=== PATIENT | female | born 1960 | race Caucasian/White ===

== ENCOUNTER → 2017-05-20 | Outpatient (CLI) | payer MEDICARE, OTHER ==
[~2017-05-20] MED LIST: AMLODIPINE BESYL5 MG PO; CELEXA20 M1 PO; CHLORTHALIDONE25 MG PO; FENOFIBRATE145 M1 PO; HUMALOG KW100 UNIT/1 SUBQ; LEVEMIR FL100 UNIT/1 SUBQ; LISINOPRIL20 MG PO; TRADJENTA5 MG PO; VITAMIN D-32000 UNIT PO
--- NOTE | ~2017-05-20 | EKG ---
PATIENT: JESSICA WADE UNIT #: [id number] Ventricular Rate: 87 BPM Atrial Rate: 87 BPM P-R Interval: 172 ms QRS Duration: 80 ms Q-T Interval: 388 ms QTC Calculation(Bezet): 466 ms P [place]: 34 degrees Calculated R [place]: -2 degrees Calculated T [place]: 20 degrees Diagnosis Line: Normal sinus rhythm Diagnosis Line: Inferior infarct , age undetermined Diagnosis Line: Cannot rule out Anterior infarct , age Diagnosis Line: undetermined Diagnosis Line: Abnormal ECG Diagnosis Line: No previous ECGs available Diagnosis Line: Confirmed by BETSY GAINES MD ([id number]) on Diagnosis Line: 05/23/2017 10:47:18 AM INTERPRETING MD: EDER PIZARRO
[2017-05-20 15:34] LABS: BUN/CREATININE RATIO 29.16; CALCIUM SERUM 9.2 mg/dL (8.4-10.2); CREATININE SERUM 1.2 mg/dL (0.6-1.4); GLOM FILT RATE Estimated 49.8 mL/min (>60); POTASSIUM 4.6 mmol/L (3.5-5.1)
== END | disposition home or self-care (01) ==
LOC: CAMB 13:00
PROVIDERS: Orthopaedic Surgery
DX: Z01.818 Encounter for other preprocedural examination (principal); M21.172 Varus deformity, not elsewhere classified, left ankle
CPT/HCPCS: 36415; 80048; 93005